=== PATIENT | female | born 1965 | race Caucasian/White ===

== ENCOUNTER 2023-02-04 17:37 | Emergency (ER) | payer OTHER ==
[~2023-02-04] VITALS: Ht 152.4 cm; Wt 65.8 kg
[~2023-02-04 17:37] MED LIST: AMLO-3 PO; AMLO10TA PO; ASPI-1749 PO; ATI.5 PO; ATOR40TA PO; BENZ-315 PO; CARV6.25 PO; CLON0.1T16 PO; CLOP75TA55 PO; DONE10TA10 PO; FAMO40PD4 PO; GABA300C PO; GLIP5TER PO; MELA1TAB32 PO; METF-1139 PO; PANT40EC PO; PANT40EC56 PO; QUET25TA PO
--- NOTE | 2023-02-04 17:37 | NUR ---
BIBA BLS TO ER BED 4
[2023-02-04 17:47] VITALS: BP 126/60
--- NOTE | 2023-02-04 17:58 | NUR ---
PT BIB AMBULANCE FROM [facility] [place], C/O HEAD INJURY S/P FALL. PT FELL OFF BED WHILE REPOSITIONING HERSELF, LT SHOULDER BRUISING, LT EYELID BRUISING. PT DINIES LOC, DENIES PAIN, ON PLAVIX AND ASA. SAFETY MAINTAINED.
--- NOTE | 2023-02-04 18:43 | NUR ---
Patient being evaluated by physician at bedside.
--- NOTE | 2023-02-04 19:15 | NUR ---
XRAY AT BEDSIDE
--- NOTE | 2023-02-04 19:28 | NUR ---
CARE OF TRANSFER GIVEN TO
[2023-02-04 21:48] VITALS: BP 115/59
--- NOTE | 2023-02-04 21:50 | NUR ---
Patient to be transferred back to SNF. Copy of nursing notes, Physicians Orders and/or X-rays to be sent with patient. Report called to KAYLEE Albert. Ambulance service has been called for transport. ETA is [phone].
--- NOTE | 2023-02-04 23:17 | NUR ---
[facility] AT BEDSIDE FOR FURNACE MAINTENANCE
--- NOTE | 2023-02-04 23:20 | NUR ---
[facility] transportation arrived for pt brass pickler. Pt left ED in stable condition.
== END 2023-02-04 23:20 ==
LOC: MED 17:37
DX: M25.512 Pain in left shoulder (principal); W06.XXXA Fall from bed, initial encounter; Y93.89 Activity, other specified; Y92.89 Other specified places as the place of occurrence of the external cause; Y99.8 Other external cause status
CPT/HCPCS: 73020; 99283

== ENCOUNTER 2023-03-16 17:47 | Emergency (ER) | payer OTHER ==
[~2023-03-16] VITALS: Ht 157.5 cm; Wt 59.0 kg
[2023-03-16 17:49] VITALS: BP 126/78; PULSE 78; RESP 18; TEMP 98; O2SAT 99
--- NOTE | 2023-03-16 18:18 | NUR ---
PATIENT PRESENTS TO ED WITH ACUTE PYSCHOTIC EPISODE. PT STATES SHE WANTED TO HANG HERSELF OB CHORDS ON THE WALL OF FACILITY. DENIES N/V/D; SKIN IS PINK/WARM/DRY; AAOX4 WITH EVEN AND STEADY GAIT; LUNGS CLEAR BL; HR EVEN AND REGULAR; PT DENIES ANY FEVER, CP, SOB, OR COUGH AT THIS TIME; PATIENT STATES PAIN OF 7/10 AT THIS TIME; VSS; PATIENT POSITIONED FOR COMFORT; HOB ELEVATED; BEDRAILS UP X2; BED DOWN. ER MD MADE AWARE OF PT STATUS.
--- NOTE | 2023-03-16 18:21 | NUR ---
PT STATES SHES HAVING SOME NAUSEA. MAD MADE AWARE.
[2023-03-16 19:20] LABS: BASOPHILS % (AUTO) 0.6 % (0.0-2.0); EOSINOPHILS # (AUTO) 0.1 K/uL (0-0.4); EOSINOPHILS % (AUTO) 1.3 % (0.0-4.0); HEMATOCRIT 27.3 % (36-48); HEMOGLOBIN 9.3 g/dL (12.0-16.0); MEAN CORPUSCULAR HEMOGLOBIN 29 pg (27-31); MEAN CORPUSCULAR HGB CONC 34 g/dL (33-37); MEAN CORPUSCULAR VOLUME 83.4 fL (80-94); MONOCYTES # (AUTO) 0.5 K/uL (0.8-1.0); MONOCYTES % (AUTO) 6.4 % (1.7-9.3); NEUTROPHILS # (AUTO) 4.8 K/uL (1.8-7.7); NEUTROPHILS % (AUTO) 64.7 % (42.2-75.2); PLATELET COUNT (AUTO) 301 K/uL (140-450); RED BLOOD CELL COUNT(AUTO) 3.27 MIL/uL (4.20-5.40); RED CELL DISTRIBUTION WIDTH 14.2 % (11.6-13.7); WHITE BLOOD COUNT (AUTO) 7.3 K/uL (4.8-10.8)
[2023-03-16 19:38] LABS: ALBUMIN 3.9 g/dL (3.4-5.0); ANION GAP 14.9 (8-16); ASPARTATE AMINOTRANSFERASE 20 U/L (15-37); CARBON DIOXIDE 26.6 mmol/L (21-32); CHLORIDE 94 mmol/L (98-107); GFR ARICAN-AMERICAN 73 mL/min (>90); GLUCOSE 109 mg/dL (74-106); POTASSIUM 3.5 mmol/L (3.5-5.1); SODIUM SERUM 132 mmol/L (136-145); TOTAL BILIRUBIN 0.3 mg/dL (0.0-1.0); UREA NITROGEN, BLOOD 20 mg/dL (7-18)
[2023-03-16] MEDS ORDERED: METF500S8 PO (19:39)
[2023-03-16] MEDS ORDERED: CLOP75TA55 PO (19:39)
[2023-03-16] MEDS ORDERED: BENZ1TAB24 PO (19:39)
[2023-03-16] MEDS ORDERED: CHLO25TA33 PO (19:39)
[2023-03-16] MEDS ORDERED: CARV6.25 PO (19:39)
[2023-03-16] MEDS ORDERED: ATOR40TA40 PO (19:39)
[2023-03-16] MEDS ORDERED: GABA300C PO ×2 (19:39)
[2023-03-16] MEDS ORDERED: ABI10 PO (19:39)
[2023-03-16] MEDS ORDERED: ASPI-1749 PO (19:39)
[2023-03-16] MEDS ORDERED: AMLO10TA89 PO (19:39)
[2023-03-16] MEDS ORDERED: FAMO-90 PO (19:39)
--- NOTE | 2023-03-16 19:39 | NUR ---
Jacque hooker in [facility] - 03/16/23 at 1940 by JEFFY C
--- NOTE | 2023-03-16 19:40 | NUR ---
Released care to harper cordon at 439
[2023-03-16 19:43] LABS: SALICYLATE < 2.8 mg/dL (2.8-20.0)
[2023-03-16 19:57] LABS: BARBITURATE, URINE NEGATIVE ng/ml (NEG <=200); BENZODIAZEPINE, URINE POSITIVE ng/mL (NEG <=200); CANNABINOID, URINE NEGATIVE ng/mL (NEG <=50); COCAINE, URINE NEGATIVE ng/mL (NEG <=300); OPIATE, URINE NEGATIVE ng/mL (NEG <=2000); PHENCYCLIDINE SCREEN,URINE NEGATIVE ng/mL (NEG <=25)
--- NOTE | 2023-03-16 20:00 | NUR ---
Pt resting comfortably in bed. No signs of acute distress. No signs of SI.
--- NOTE | 2023-03-16 21:30 | NUR ---
Snack provided to pt; tolerated well.
--- NOTE | 2023-03-17 06:28 | NUR ---
Pt verbalized that she is no longer feeling suicidal and would like to return to her facility. ERMD was made aware and stated that she would still need psych evaluation. Pt was made aware and was agreeable.
--- NOTE | 2023-03-17 07:40 | NUR ---
RECIEVED REPORT FOR PT FROM KAYLEE RUSHING @ 740 AM. PATIENT WAS HELD OVERNIVGHT IN ER FOR ACUTE PYSCHOTIC EPISODE. PT STATES SHE SHE DOES NOT WANT TO HARM HERSELF AT THIS TIME. PT STATES SHE WANTS TO GO BACK TO FACILITY. PT DENIES N/V/D; SKIN IS PINK/WARM/DRY; AAOX4 WITH EVEN AND STEADY GAIT; LUNGS CLEAR BL; HR EVEN AND REGULAR; PT DENIES ANY FEVER, CP, SOB, OR COUGH AT THIS TIME; PATIENT STATES PAIN OF 7/10 AT THIS TIME; VSS; PATIENT POSITIONED FOR COMFORT; HOB ELEVATED; BEDRAILS UP X2; BED DOWN. ER MD MADE AWARE OF PT STATUS.
--- NOTE | 2023-03-17 08:40 | NUR ---
PT HAS BEEN EXPLAINED PLAN OF CARE. PT STATES SHE WANTS TO SPEAK WITH THE DR. PT HAS BEEN INFORMED THAT SHE IS DUE FOR A PYSCH CONSULT AND THE DR. WILL HAVE TO CLEAR HER FOR DISCHARGE. PT STATES UNDERSTANDING. PTS VITALS FOLLOWS 97.3 TEMP, 62 PULSE, 18 RESPIRATIONS, 100 O2, 113/65 B/P. PTS BLOOD SUGAR BEFORE BREAKFAST WAS 133 at 07:39 am.
--- NOTE | 2023-03-17 09:23 | NUR ---
Pt had psych eval at 8:35. Per providers orders pt will be placed on hold. Pt is AOx4, no signs and symptoms of pain or discomfort. ER provider made aware of hold. Pt does not present any sings of danger to self or others. Pt states the psychotic episode has passed and would like to return to facility.
[2023-03-17] MEDS ORDERED: ARIPiprazole 10 MG TAB ONE (09:42)
[2023-03-17] MEDS: ARIPiprazole 10 MG TAB PO SCH (09:43)
--- NOTE | 2023-03-17 10:57 | NUR ---
PER PETRA AND PER THE DIRECTOR OF ED ABILIO PATIENT CAN LEAVE AMA WITHOUT A WRITTEN 5150 HOLD.
--- NOTE | 2023-03-17 11:00 | NUR ---
PT REFUSED LUNCH AT THIS TIME.
--- NOTE | 2023-03-17 11:09 | NUR ---
[facility]UL[facility] DUENAS - [facility], PER SERGEANT RODRIGUEZ A PD CAN COME AND WRITE A HOLD.
--- NOTE | 2023-03-17 11:26 | NUR ---
OFFICER NED PLACED PT ON THREE DAY HOLD
--- NOTE | 2023-03-17 12:28 | NUR ---
Pt has been offered meal pt states she is not hungry at this time. pt blood sugar 178
--- NOTE | 2023-03-17 12:40 | NUR ---
CHANGED PTS DIAPPER URINE ONLY
--- NOTE | 2023-03-17 15:27 | NUR ---
JACK ALVAREZ ([facility] [place]) [phone] CALLED AND SPOKE WITH PATIENT. PT AWAKE AND ALERT AND UNDERSTANDS NEED TO STAY IN THE HOSPITAL, COOPERATIVE WITH CARE
--- NOTE | 2023-03-17 16:00 | NUR ---
PT BEING VISITED BY [facility] HE IS THE [facility]. PT EXPRESSED HER CONCERNS TO HIM AND PT SEEMD TO BE VERY AGITTATED. ROD EXPLAINED SHE MAY NOT BE ABLE TO RETURN. PT UNDERSTOOD WHY SHE NEED TO CONTINUE TO BE PLACE HOLD
--- NOTE | 2023-03-17 17:40 | NUR ---
CHANGED PT DIAPPER PT SOILED URINE ONLLY
--- NOTE | 2023-03-17 18:46 | NUR ---
The patient's care was reviewed and supervised by [place] [facility] ED, RN.
--- NOTE | 2023-03-17 19:20 | NUR ---
PT SOILED DIAPER URINE ONLY CHANGED CLEANED AND REPOSITIONED.
--- NOTE | 2023-03-17 19:30 | NUR ---
RELEASED CARE TO KAYLEE SAGASTUME
--- NOTE | 2023-03-17 20:00 | NUR ---
Pt resting comfortably in bed. Denies any pain/discomfort. Denies any SI at this time.
[2023-03-17] MEDS: QUEtiapine FUMARATE 25 MG TAB PO SCH (21:05)
[2023-03-18 04:30] VITALS: RESP 18; TEMP 98.3
--- NOTE | 2023-03-18 04:30 | NUR ---
Pt resting in bed comfortably; easy to arouse. No signs of acute distress. No signs of SI.
--- NOTE | 2023-03-18 07:18 | NUR ---
Pt report given to Radha. Transfer of care at this time. Pt in stable cond.
--- NOTE | 2023-03-18 07:30 | NUR ---
Pt is being treated for acute pyscotic episode. Pt has been placed on a psych hold for three days starting 03/17/22 Pt in bed laying supine. Pt expressed she is having irritation in her rgt eye. Pt states the irrtation started in the night. Md made aware of pts status. Pt denies any N/V/D, SOB, CP, and pt is AOX4. Pt lung sounds clear, no signs of Pt is unable to abmbulate. pt has history of right side defict due to stroke 8 years prior. pt urinated and cleaned up patient, dipper change.Pt repositioned for comfort. Pts vital sings stable. Will continue to [facility]or for hold.
--- NOTE | 2023-03-18 07:33 | NUR ---
Recieved report from KAYLEE Case. Assumed care at 730.
[2023-03-18 08:13] VITALS: O2SAT 66
--- NOTE | 2023-03-18 11:41 | NUR ---
Packet faxed to: [facility] Paul Murrell [facility]
--- NOTE | 2023-03-18 12:50 | NUR ---
SPOKE WITH [employer] [facility] FOR PLACEMENT. THEY WILL CALL BACK IF SHE CAN BE ACEPPTED TO THE FACILTY
--- NOTE | 2023-03-18 14:00 | NUR ---
PT AWAKE IN BED RESTING. PT DOES NOT PRESENT TO BE A THREAT TO OTHERS OR HERSELF AT THIS TIME.
[2023-03-18] MEDS ORDERED: INSULIN LISPRO SLIDING SCALE 100 UNITS/ML VIAL SUBQ PRN (17:35)
--- NOTE | 2023-03-18 17:44 | NUR ---
PT CHANGED FROM SOILED DIAPER. PT URINATED ONLY. PT REPOSITIONED IN BED. BLOOD SUGAR HAS BEEN CHECKED. PROVIDER AWARE OF RESULTS
--- NOTE | 2023-03-18 19:27 | NUR ---
The patient's care was reviewed and supervised by [place] [facility] ED, RN.
--- NOTE | 2023-03-18 19:44 | NUR ---
RELEASED CARE TO MELISSA MOREJON AT 1930
[2023-03-18 19:50] VITALS: O2SAT 66
[2023-03-18] MEDS ORDERED: INSULIN LANTUS 100 UNITS/ML 10 ML VIAL SUBQ ONE (21:00)
[2023-03-18] MEDS: QUEtiapine FUMARATE 25 MG TAB PO SCH ×2 (21:25→21:32)
--- NOTE | 2023-03-18 22:18 | NUR ---
PT CARE PROVIDED WITH COMFORT MEASURES. PT INERACTING APPROPRIATELY WITH STAFF, AWAKE AND ALERT. AWAITING ON ACCEPTANCE TO A FACILITY
--- NOTE | 2023-03-18 23:15 | NUR ---
PT CARE PROVIDED WITH COMFORT MEASURES
[2023-03-18 23:30] VITALS: O2SAT 66
--- NOTE | 2023-03-19 01:20 | NUR ---
PT RESTING IN ROOM AWAITING TRASNFER. PT NON PHYSICAL OR VERBALLY AGGRESSIVE.
[2023-03-19 02:45] VITALS: O2SAT 66
--- NOTE | 2023-03-19 04:30 | NUR ---
PT CONTINUES TO REST IN ROOM AWAITING TRANSFER.
[2023-03-19] MEDS ORDERED: glipiZIDE ER 5 MG TABER PO ONE (06:19)
[2023-03-19 06:26] VITALS: O2SAT 66
[2023-03-19] MEDS ORDERED: glipiZIDE 5 MG TAB PO SCH (06:30)
[2023-03-19 06:32] VITALS: BP 132/74; PULSE 65
--- NOTE | 2023-03-19 07:16 | NUR ---
Pt report given to KM PAGE. Transfer of care at this time.
--- NOTE | 2023-03-19 07:31 | NUR ---
PT CARE RESUMED
[2023-03-19] MEDS ORDERED: metFORMIN 500 MG TAB PO SCH (08:00)
[2023-03-19 08:31] VITALS: O2SAT 97
--- NOTE | 2023-03-19 09:30 | NUR ---
PT ON WITH TELEPSYCH
[2023-03-19] MEDS: ARIPiprazole 10 MG TAB PO SCH (09:56)
--- NOTE | 2023-03-19 10:45 | NUR ---
PT SEEN BY PSYCHIATRIST AND ORDERED FOR PT TO BE REMOVED OFF 5150 HOLD.
--- NOTE | 2023-03-19 11:40 | NUR ---
SPOKE TO EBONI TORRES AT [facility] [place] , REPORT GIVEN FOR PT RETURNING.
--- NOTE | 2023-03-19 12:14 | NUR ---
Patient discharged with v/s stable. Written and verbal after care instructions given and explained. Patient verbalized understanding. Wheel Chair Assisted with to correction. All questions addressed prior to discharge. Advised to follow up with PMD.
== END 2023-03-19 12:14 | disposition home or self-care (01) ==
LOC: MED 17:47
DX: T14.91XA Suicide attempt, initial encounter (principal); E11.9 Type 2 diabetes mellitus without complications; I10 Essential (primary) hypertension; Z20.822 Contact with and (suspected) exposure to COVID-19; Z79.84 Long term (current) use of oral hypoglycemic drugs; Z79.899 Other long term (current) drug therapy; Z98.890 Other specified postprocedural states; Z86.73 Personal history of transient ischemic attack (TIA), and cerebral infarction without residual deficits; Z88.0 Allergy status to penicillin; Z88.8 Allergy status to other drugs, medicaments and biological substances; X83.8XXA Intentional self-harm by other specified means, initial encounter; Y93.89 Activity, other specified; Y92.89 Other specified places as the place of occurrence of the external cause; Y99.8 Other external cause status
CPT/HCPCS: 36415; 80053; 80305; 85025; 87426; 99283; G0480; G0482; J1815

== ENCOUNTER 2023-12-19 17:08 | Emergency (ER) | payer OTHER ==
[~2023-12-19] VITALS: Ht 157.5 cm; Wt 54.4 kg
[~2023-12-19 17:08] MED LIST changes: +ABI10 PO; +AMLO10TA89 PO; +ATOR40TA40 PO; +BENZ1TAB24 PO; +CHLO25TA33 PO; +FAMO-90 PO; -FAMO40PD4 PO; +FAMO40SU5 PO; +METF500S8 PO
[2023-12-19 17:24] VITALS: BP 160/84; PULSE 64; RESP 18; TEMP 97.3; O2SAT 97
[2023-12-19 19:12] LABS: BASOPHILS % (AUTO) 0.7 % (0.0-2.0); HEMATOCRIT 35.4 % (36-48); LYMPHOCYTES # (AUTO) 1.6 K/uL (2.5-16.5); LYMPHOCYTES % (AUTO) 35.9 % (20.5-51.1); MEAN CORPUSCULAR HEMOGLOBIN 28 pg (27-31); MEAN CORPUSCULAR HGB CONC 34 g/dL (33-37); MONOCYTES # (AUTO) 0.3 K/uL (0.8-1.0); NEUTROPHILS # (AUTO) 2.5 K/uL (1.8-7.7); NEUTROPHILS % (AUTO) 55.4 % (42.2-75.2); PLATELET COUNT (AUTO) 214 K/uL (140-450); RED BLOOD CELL COUNT(AUTO) 4.27 MIL/uL (4.20-5.40); RED CELL DISTRIBUTION WIDTH 14.2 % (11.6-13.7); WHITE BLOOD COUNT (AUTO) 4.6 K/uL (4.8-10.8)
[2023-12-19 19:30] LABS: CALCIUM 8.9 mg/dL (8.5-10.1); CARBON DIOXIDE 25.7 mmol/L (21-32); CREATININE 1.1 mg/dL (0.6-1.3); POTASSIUM 3.7 mmol/L (3.5-5.1)
[2023-12-19 19:36] LABS: ACETAMINOPHEN < 0.5 ug/ml (10-30); ALANINE AMINOTRANSFERASE 19 U/L (12-78); ALBUMIN 3.4 g/dL (3.4-5.0); ALKALINE PHOSPHATASE 79 U/L (50-136); ASPARTATE AMINOTRANSFERASE 17 U/L (15-37); BILIRUBIN,DIRECT 0.1 mg/dL (0.0-0.3); SALICYLATE < 2.8 mg/dL (2.8-20.0); TOTAL BILIRUBIN 0.2 mg/dL (0.0-1.0); TOTAL PROTEIN, SERUM 7.2 g/dL (6.4-8.2)
[2023-12-19 19:37] LABS: ALCOHOL, BLOOD < 3 mg/dL (<10)
[2023-12-19] MEDS: QUEtiapine FUMARATE 25 MG TAB PO SCH (22:11)
[2023-12-19 23:23] LABS: AMPHETAMINE, URINE NEGATIVE ng/ml (NEG <=1000); BARBITURATE, URINE NEGATIVE ng/ml (NEG <=200); BENZODIAZEPINE, URINE POSITIVE ng/mL (NEG <=200); CANNABINOID, URINE NEGATIVE ng/mL (NEG <=50); COCAINE, URINE NEGATIVE ng/mL (NEG <=300); OPIATE, URINE NEGATIVE ng/mL (NEG <=2000); PHENCYCLIDINE SCREEN,URINE NEGATIVE ng/mL (NEG <=25)
[2023-12-20] MEDS: OLANZapine 5 MG TAB PO ONE (02:59)
[2023-12-20 08:31] VITALS: TEMP 98.6
[2023-12-20 11:17] VITALS: BP 157/70; PULSE 62; O2SAT 97
== END 2023-12-20 11:16 | disposition home or self-care (01) ==
LOC: MED 17:08
DX: R45.851 Suicidal ideations (principal); F31.9 Bipolar disorder, unspecified; Z20.822 Contact with and (suspected) exposure to COVID-19; F43.20 Adjustment disorder, unspecified; E11.9 Type 2 diabetes mellitus without complications; I10 Essential (primary) hypertension; I25.10 Atherosclerotic heart disease of native coronary artery without angina pectoris; Z86.73 Personal history of transient ischemic attack (TIA), and cerebral infarction without residual deficits; Z79.899 Other long term (current) drug therapy; Z79.01 Long term (current) use of anticoagulants; Z79.82 Long term (current) use of aspirin; Z88.5 Allergy status to narcotic agent; Z88.0 Allergy status to penicillin; Z88.8 Allergy status to other drugs, medicaments and biological substances
CPT/HCPCS: 36415; 80048; 80076; 80305; 85025; 87426; 99285; G0480; G0482